=== PATIENT | male | born 1950 ===

== ENCOUNTER 2023-06-28 09:45 | Inpatient (IN) | payer OTHER ==
[~2023-06-28] VITALS: Ht 180.3 cm; Wt 99.8 kg
[~2023-06-28 09:45] MED LIST: CARDIZEM CD180 M1 PO; CELEXA40 MG PO; GRALISE600 MG PO; JANUVIA50 MG PO; MELATONIN10 M2 PO; METFORMIN HCL1000 MG; RYTARY ER 48.71 EACH PO; SEROQUEL25 MG PO; SINEMET 25-1001 EACH PO
[2023-06-28 13:51] LABS: HEMOGLOBIN 13.3 g/dL (13-16.00); MEAN CELL VOLUME 81.5 fL (80.0-100.00); MEAN CORPUSCULAR HEMOGLOBIN 27.1 pg (27.00-32.0); MEAN CORPUSCULAR HGB CONC 33.3 g/dl (32.0-36.0); PLATELET COUNT 213 K/uL (150-450); RED BLOOD COUNT 4.91 M/uL (4.00-6.00)
[2023-06-28 13:57] LABS: PH,URINE 5.5 (5.0-8.0); URINE APPEARANCE Clear; URINE BILIRRUBIN Negative (NEGATIVE); URINE BLOOD Negative; URINE COLOR Yellow; URINE GLUCOSE Negative (NEGATIVE); URINE LEUKOCYTE Negative; URINE NITRATE Negative; URINE PROTEIN 30 (NEGATIVE); URINE UROBILINOGEN 0.2 E.U./dl
[2023-06-28 14:03] LABS: URINE WBC 1.8 uL (0.0-23.2)
[2023-06-28 14:08] LABS: INR < 0.93; PARTIAL THROMBOPLASTIN TIME 26.8 SECONDS (22.0-34.0)
[2023-06-28 14:09] LABS: PROTHROMBIN TIME 9.7 SECONDS (9.0-11.5)
[2023-06-28 14:29] LABS: URINE BACTERIA 3.7 uL (0.0-1933); URINE EPITHELIAL CELLS 0.7 uL (0.0-38.8); URINE RBC 0.7 uL (0.0-20.8)
[2023-06-28 14:36] LABS: ALBUMIN 3.7 gm/dL (3.4-5.0); CALCIUM 9.7 mg/dL (8.5-10.1); CREATININE SERUM 1.1 mg/dL (0.70-1.30); GFR 65.62; GLOBULINA 3.7 G/DL (2.4-3.5); POTASSIUM 4.4 mEq/L (3.5-5.1); TOTAL PROTEIN 7.4 gm/dL (6.4-8.2)
[2023-07-02] MEDS ORDERED: CEFAZOLIN SODIUM 1,000 MG VIAL ONE ×2 (10:51→16:49)
[2023-07-02] MEDS ORDERED: TRANEXAMIC ACID 100MG/1ML (1000MG) AMPUL IV ONE ×3 (11:33→13:00)
[2023-07-02] MEDS ORDERED: KETOROLAC TROMETHAMINE 60 MG VIAL IM ONE ×2 (11:33→13:00)
[2023-07-02] MEDS ORDERED: ABATINEX680 MG (11:37)
[2023-07-02] MEDS ORDERED: BREO ELLIPTA I1 EACH (11:37)
[2023-07-02] MEDS ORDERED: ACID REDUCER20 MG (11:37)
[2023-07-02] MEDS ORDERED: RIVASTIGMINE1.5 MG (11:37)
[2023-07-02] MEDS ORDERED: AMANTADINE50 MG/5 ML (11:37)
[2023-07-02] MEDS ORDERED: METFORMIN HCL1000 M3 (11:37)
[2023-07-02] MEDS ORDERED: CELEXA20 MG (11:42)
[2023-07-02] MEDS ORDERED: POVIDONE-IODINE 3 EA MED..SWAB TOP ONE (12:22)
[2023-07-02] MEDS ORDERED: CEFAZOLIN SODIUM 1,000 MG VIAL IV ONE (12:45)
[2023-07-02] MEDS ORDERED: BUPIVACAINE HCL 30 ML VIAL IJ ONE (13:00)
[2023-07-02] MEDS ORDERED: LIDOCAINE HCL 1%/Epi 20ML VIAL IJ ONE (13:00)
[2023-07-02] MEDS ORDERED: MORPHINE SULFATE 4 MG/ML VIAL IV ONE (13:00)
[2023-07-02] MEDS ORDERED: POVIDONE-IODINE 0.75 OZ PACKET TOP ONE (13:00)
[2023-07-02] MEDS ORDERED: ONDANSETRON HCL 2 MG/ML VIAL IV PRN (14:15)
[2023-07-02] MEDS ORDERED: MORPHINE SULFATE 4 MG/ML CARTRIDGE IV PRN (14:15)
[2023-07-02] MEDS ORDERED: SODIUM CHLORIDE 0.45 % 1,000 ML IV SCH (14:15)
[2023-07-02] MEDS ORDERED: OxyCODONE HCL 5 MG TABLET (ROXICODONE) PO PRN (14:15)
[2023-07-02] MEDS ORDERED: CEFAZOLIN SODIUM 1,000 MG VIAL IV SCH (17:00)
[2023-07-02] MEDS ORDERED: GABAPENTIN 300 MG CAPSULE PO SCH (17:00)
[2023-07-02] MEDS ORDERED: ACETAMINOPHEN 500 MG GEL..CAP PO SCH (18:00)
[2023-07-02] MEDS ORDERED: ACETAMINOPHEN 500 MG GEL..CAP PO ONE (18:20)
[2023-07-03 08:28] LABS: HEMATOCRIT 36.6 % (39.0-48.0); HEMOGLOBIN 12.3 g/dL (13-16.00); MEAN CELL VOLUME 82.8 fL (80.0-100.00); MEAN CORPUSCULAR HEMOGLOBIN 27.9 pg (27.00-32.0); MEAN CORPUSCULAR HGB CONC 33.6 g/dl (32.0-36.0); PLATELET COUNT 177 K/uL (150-450); RED BLOOD COUNT 4.42 M/uL (4.00-6.00); RED CELL DISTRIBUTION WIDTH 13.7 % (11.5-14.5)
[2023-07-03] MEDS ORDERED: APIXABAN 2.5 MG TABLET PO SCH (09:00)
[2023-07-03] MEDS ORDERED: SENNOSIDES 1 TAB TABLET PO SCH (09:00)
[2023-07-03] MEDS ORDERED: ACETAMINOPHEN WITH CODEINE 1 UDTAB TABLET PO PRN (10:00)
[2023-07-03] MEDS ORDERED: DILTIAZEM HCL 180 MG CAP.SR.24H PO SCH (12:23)
[2023-07-03] MEDS ORDERED: INSULIN LISPRO 1,000 UNIT/10 ML UNITS SUBCUTANEO PRN (12:30)
[2023-07-03] MEDS ORDERED: DEXTROSE 50 % IN WATER 0.5 G/ML DISP.SYRIN IV PRN (12:30)
[2023-07-03] MEDS ORDERED: VITAMIN B COMPLEX 1 EACH PO SCH (13:28)
[2023-07-03] MEDS ORDERED: Cyanocobalamin/Mecobalamin 1 TAB.SL SL SCH (13:28)
[2023-07-03] MEDS ORDERED: SOD FERRIC GLUC COMPLX/SUCROSE 62.5 MG/5 ML AMPUL IV SCH (13:28)
[2023-07-03] MEDS ORDERED: hydrALAZINE HCL 20 MG VIAL IV STA (19:15)
[2023-07-03] MEDS ORDERED: hydrALAZINE HCL 20 MG VIAL IV PRN (19:30)
[2023-07-04 05:35] LABS: HEMATOCRIT 33.6 % (39.0-48.0); HEMOGLOBIN 11.4 g/dL (13-16.00); MEAN CELL VOLUME 81.7 fL (80.0-100.00); MEAN CORPUSCULAR HEMOGLOBIN 27.7 pg (27.00-32.0); MEAN CORPUSCULAR HGB CONC 33.8 g/dl (32.0-36.0); PLATELET COUNT 163 K/uL (150-450); RED BLOOD COUNT 4.11 M/uL (4.00-6.00); RED CELL DISTRIBUTION WIDTH 13.4 % (11.5-14.5)
[2023-07-04] MEDS ORDERED: IRON FUM,PS/FOLIC ACID/VITC/B3 1 CAP CAPSULE PO SCH (09:00)
[2023-07-04] MEDS ORDERED: ENALAPRILAT DIHYDRATE 2.5 MG/2 ML VIAL IV ONE (16:00)
== END 2023-07-04 18:33 | DRG 470 ==
LOC: O/R 07-02 07:32 → SURH 07-02 09:45 → PED 07-02 15:09 → O/R 07-02 15:10 → SURH 07-02 17:00 → SURG 07-02 17:58
PROVIDERS: ADMIT Orthopaedic Surgery; ATTEND Orthopaedic Surgery
PROC: 0SRD0J9 Replacement of Left Knee Joint with Synthetic Substitute, Cemented, Open Approach (ICD-10-PCS; principal; 2023-07-02 17:00)
DX: M17.12 Unilateral primary osteoarthritis, left knee (principal); D62 Acute posthemorrhagic anemia; M22.12 Recurrent subluxation of patella, left knee; I10 Essential (primary) hypertension; G20.A1 Parkinson's disease without dyskinesia, without mention of fluctuations